=== PATIENT | male | born 2000 | race Two or more races ===

== ENCOUNTER 2024-08-02 15:01 | Emergency (ER) | payer SELFPAY ==
[~2024-08-02] VITALS: Ht 175.3 cm; Wt 91.0 kg
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
[2024-08-02 16:37] VITALS: BP 106/87; PULSE 83; RESP 20; TEMP 98.1; O2SAT 98
[2024-08-02] MEDS ORDERED: CEPH500C PO (16:39)
== END 2024-08-02 16:43 | disposition home or self-care (01) ==
LOC: ER 15:01
DX: S01.81XA Laceration without foreign body of other part of head, initial encounter (principal); W22.8XXA Striking against or struck by other objects, initial encounter; Y93.89 Activity, other specified; Y92.89 Other specified places as the place of occurrence of the external cause; Y99.8 Other external cause status
CPT/HCPCS: 12014

== ENCOUNTER 2024-08-12 12:21 | Emergency (ER) | payer SELFPAY ==
[~2024-08-12] VITALS: Ht 175.3 cm; Wt 86.4 kg
[~2024-08-12 12:21] MED LIST: CEPH500C PO
--- NOTE | 2024-08-12 14:07 | ED.PDOC ---
History of Present Illness(SKN HPI Comments A 23 year old male presents to the ED with a chief complaint of suture removal onset today(08/12/24). Per patient, he was seen in this ED on 08/02/24 due to laceration on forehead, sutures were placed and told to return to ED in 10 days. Patient noticed laceration is healing well, no discharge, has no further complaints. Denies purulent discharge Denies headache Denies fever, chills, nausea/vomiting Denies rash Denies bleeding Chief Complaint: Suture Removal Time Seen by MD: 13:55 History of Present Illness: Nurses Notes, Medications, Allergies Allergies: Coded Allergies: NO KNOWN ALLERGIES (Unverified , 08/02/24) Home Meds Active Scripts Cephalexin Monohydrate (Cephalexin) 500 Mg Cap, 1 CAP PO QID, #28 CAP Prov:JULY TORREZ 08/02/24 Information Source: Patient Mode of Arrival: Ambulatory Severity: Moderate Timing: Hours Duration: Since onset Prehospital treatment: None Location: Face, Other (forehead) Past Medical History PAST MEDICAL HISTORY: Denies Surgical History: Denies all surgeries Family History Family History: Reviewed,noncontributory to illness Social History Smoker: Non-Smoker Alcohol: Denies ETOH Use Drugs: Denies Drug Use Lives In: Home All Other Systems: Reviewed and Negative (as per HPI) Physical Exam General Appearance: No Apparent Distress, Normal HEENT: Normal ENT Inspection, Pharynx Normal, TMs Normal Neck: Full Range of Motion, Non-Tender, Normal, Normal Inspection Respiratory: Chest Non-Tender, Lungs Clear, No Accessory Muscle Use, No Respiratory Distress, Normal Breath Sounds Cardiovascular: No Edema, No JVD, No Murmur, No Gallop, Normal Peripheral Pulses, Regular Rate/Rhythm Breast Exam: Deferred Gastrointestinal: No Organomegaly, Non Tender, No Pulsatile Mass, Normal Bowel Sounds, Soft Genitalia: Deferred Pelvic: Deferred Rectal: Deferred Extremities: No calf tenderness, Normal capillary refill, Normal inspection, Normal range of motion, Non-tender, No pedal edema Musculoskeletal : Apperance: Normal Neurologic: Alert, medication care manager II-XII nml as Tested, No Motor Deficits, Normal Affect, Normal Mood, No Sensory Deficits Cerebellar Function: Normal Reflexes: Normal Skin: Dry, Normal Color, Warm Lymphatic: No Adenopathy Was a procedure done? Was a procedure done?: No Differential Diagnosis (INTG) Differential Diagnosis: Cellulitis, Other (suture removal) X-Ray, Labs, Meds, VS Vital Signs Date Time Temp Pulse Resp B/P (MAP) Pulse Ox O2 Delivery O2 Flow Rate FiO2 08/12/24 14:44 98.7 78 17 121/64 (83) 97 98.7 08/12/24 14:44 67 16 97 Room Air 08/12/24 12:55 98.4 54 16 122/76 (91) 98 98.4 X-Ray, Labs, Meds, VS Comment A 23 year old male presents to the ED with a chief complaint of suture removal onset today(08/12/24). Patient arrives alert and oriented, ABC's intact, afebrile, vital signs stable, saturating well in room air Suture removal procedure: Alcohol swab used to clean area thoroughly. Used sterile suture removal kit to remove sutures. Patient advised to return in two days to remove the 2 remaining sutures Clean, dry, intact. No discharge seen. Education provided to keep area clean and dry. If gets soiled, use soap and water to clean. Watch out for signs and symptoms of infection including fever, chills, yellow or green discharge, increased pain, swelling etc. Strict return precautions discussed and the patient agrees to plan Time of 1ST Reevaluation: 14:25 Reevaluation 1ST: Improved Patient Education/Counseling: Diagnosis, Treatment, Prognosis Family Education/Counseling: No Family Present Departure 1 Departure Time of Disposition: 14:19 Impression: Primary Impression: Visit for suture removal Disposition: 01 HOME / SELF CARE / HOMELESS Condition: Stable Discharged With: Self Critical Care Note Critical Care Time?: No Stability Stability form required: No Heart Score Heart Score: Heart Score Response (Comments) Value History N/A 0 EKG N/A 0 Age N/A 0 Risk Factors N/A 0 Troponin N/A 0 Total 0 I personally scribed for MELI DOE NP ([email or web address]) on 08/12/24 at 14:07. Electronically submitted by Carrie Huddleston ([email or web address]). MELI DOE NP August 12, 2024 14:07
[2024-08-12 14:44] VITALS: BP 121/64; PULSE 67; RESP 16; TEMP 98.7; O2SAT 97
== END 2024-08-12 14:45 | disposition home or self-care (01) ==
LOC: ER 12:26
DX: S01.81XD Laceration without foreign body of other part of head, subsequent encounter (principal); Z79.899 Other long term (current) drug therapy; X58.XXXA Exposure to other specified factors, initial encounter